=== PATIENT | male | born 1970 | race Caucasian/White ===

== ENCOUNTER 2022-08-01 14:23 | Emergency (ER) | payer MEDICAID ==
[~2022-08-01] VITALS: Ht 180.3 cm; Wt 87.6 kg
[2022-08-01] MEDS ORDERED: KETOROLAC TROMETH 60MG/2ML VIAL IM ONE (14:45)
[2022-08-01] MEDS ORDERED: HYDROcodone-ACET 10/325MG TAB PO ONE (14:45)
[2022-08-01] MEDS ORDERED: HYDR-4798 PO (15:59)
[2022-08-01] MEDS ORDERED: IBUP800T26 PO (15:59)
[2022-08-01 16:28] VITALS: BP 124/92
== END 2022-08-01 16:30 | disposition home or self-care (01) ==
LOC: ER 14:23
DX: M54.6 Pain in thoracic spine (principal); X50.1XXA Overexertion from prolonged static or awkward postures, initial encounter; Y93.89 Activity, other specified; Y92.89 Other specified places as the place of occurrence of the external cause; Y99.8 Other external cause status
CPT/HCPCS: 72040; 72070; 96372; 99284; J1885